=== PATIENT | male | born 1965 | race Caucasian/White ===

== ENCOUNTER 2019-08-13 00:14 | Emergency (ER) | payer OTHER ==
[~2019-08-13] VITALS: Ht 167.6 cm; Wt 90.7 kg
[~2019-08-13 00:14] MED LIST: METFORMIN
[2019-08-13 00:20] VITALS: BP 130/83
--- NOTE | 2019-08-13 00:20 | NUR ---
54 YO M BIB SELF C/C OF 8/10 LEFT CHEST PAIN X2 DAYS THAT RADIATES TO LEFT SHOULDER AND BACK. PT APPEARS DIAPHORETIC. S1 AND S2 HEARD. NO JUGULAR VEIN DISTENTION. CAP REFILL <3 SECS. NO EDEMA. PERIPHERAL PULSES NORMAL. LUNG SOUNDS THROUGHOUT. BOWEL SOUNDS ACTIVE THROUGHOUT. PT PLACED ON LIVESTOCK COMMISSION AGENT. BED LOCKED AND IN LOWEST POSITION. SIDE RAILS X1. NKA MED HX: DM2, HTN RX: LISINOPRIL
[2019-08-13] MEDS ORDERED: NACL 0.9% 1,000 ML IV ONE (00:45)
[2019-08-13] MEDS ORDERED: ASPIRIN 81 MG TAB.CHEW PO ONE ×2 (00:45→01:10)
[2019-08-13] MEDS ORDERED: KETOROLAC 30 MG/ML VIAL IVP ONE (00:45)
[2019-08-13 00:57] LABS: BASOPHILS # (AUTO) 0.1 K/uL (0.00-0.22); BASOPHILS % (AUTO) 0.9 % (0.0-2.0); EOSINOPHILS % (AUTO) 0.3 % (0.0-4.0); HEMATOCRIT 46.7 % (36-52); HEMOGLOBIN 15.9 g/dL (12.0-18.0); LYMPHOCYTES % (AUTO) 15.8 % (20.5-51.1); MEAN CORPUSCULAR HEMOGLOBIN 32 pg (27-31); MEAN CORPUSCULAR HGB CONC 34 g/dL (33-37); MEAN CORPUSCULAR VOLUME 92.3 fL (80-94); MONOCYTES # (AUTO) 1.1 K/uL (0.8-1.0); MONOCYTES % (AUTO) 8.6 % (1.7-9.3); NEUTROPHILS # (AUTO) 9.2 K/uL (1.8-7.7); NEUTROPHILS % (AUTO) 74.4 % (42.2-75.2); PLATELET COUNT (AUTO) 241 K/uL (140-450); RED BLOOD CELL COUNT(AUTO) 5.06 MIL/uL (4.20-6.10); RED CELL DISTRIBUTION WIDTH 12.7 % (11.6-13.7); WHITE BLOOD COUNT (AUTO) 12.4 K/uL (4.8-10.8)
[2019-08-13] MEDS ORDERED: NITROGLYCERIN 0.4 MG TAB SL ONE (01:05)
--- NOTE | 2019-08-13 01:10 | NUR ---
SUBLINGUAL NITROGLYCERIN ADMINISTERED FOR 8/10 CHEST PAIN
[2019-08-13 01:13] LABS: CARBON DIOXIDE 20.3 mmol/L (21-32); POTASSIUM 4.3 mmol/L (3.5-5.1); TOTAL BILIRUBIN 0.6 mg/dL (0.0-1.0)
--- NOTE | 2019-08-13 01:15 | NUR ---
SECOND SUBLINGUAL NITROGLYCERIN ADMINISTERED FIVE MINUTES AFTER FIRST DOSE BECAUSE CHEST PAIN WAS NOT RELIEVED.
[2019-08-13 01:17] LABS: PROTHROMBIN TIME 9.8 secs (10.8-13.4)
--- NOTE | 2019-08-13 01:20 | NUR ---
PT AWARE OF TRANSFER TO [facility]. PT SIGNED CONSENT FOR TRANSFER
--- NOTE | 2019-08-13 01:20 | NUR ---
THIRD SUBLINGUAL NITROGLYCERIN ADMINISTERED FIVE MINUTES AFTER SECOND DOSE BECAUSE CHEST PAIN WAS NOT RELIEVED.
--- NOTE | 2019-08-13 01:25 | NUR ---
PT REPORTED 4/10 CHEST PAIN
--- NOTE | 2019-08-13 01:26 | NUR ---
RAD AT BEDSIDE.
--- NOTE | 2019-08-13 01:40 | NUR ---
PIA GAVE REPORT TO HENRIK DAWSON AT [facility] ER. ACCEPTING DOCTOR IS ANANT, PT WILL GO TO ER VIA [facility] ACLS TRANSFER
--- NOTE | 2019-08-13 01:47 | NUR ---
PETRA FROM LAB CALLED WITH TROPONIN [phone] CHAYITO SANTOS NOTIFIED
[2019-08-13 01:50] VITALS: BP 105/72
--- NOTE | 2019-08-13 01:50 | NUR ---
Patient to be transferred to [facility]. Is being transferred due to HIGHER LEVEL OF CARE. Receiving facility has accepting physician and available space. ER physician has signed transfer form. Patient or responsible libertarian has agreed to transfer and signed form. Patient belongings inventoried and will be sent with patient. Copy of nursing notes, lab reports, EKG, Physicians Orders and X-rays to be sent with patient.
--- NOTE | 2019-08-13 01:53 | NUR ---
[facility] LEFT WITH PT, CODE [address] [facility] WITHOUT INCIDENT
--- NOTE | 2019-08-13 02:12 | NUR ---
SPOKE WITH DR MCCORMACK AT [facility] TO REPORT CRITICAL LAB VALUE OF TROPONIN
== END 2019-08-13 01:50 | disposition short-term general hospital (02) ==
LOC: MED 00:14
DX: I21.3 ST elevation (STEMI) myocardial infarction of unspecified site (principal); E11.9 Type 2 diabetes mellitus without complications; Z79.84 Long term (current) use of oral hypoglycemic drugs
CPT/HCPCS: 36415; 71045; 80053; 84484; 85025; 85610; 85730; 93005; 96374; 99285; J1885; J7030; Q0092

== ENCOUNTER 2021-01-28 14:16 | Emergency (ER) | payer OTHER ==
[~2021-01-28] VITALS: Ht 167.6 cm; Wt 100.2 kg
[2021-01-28 14:48] VITALS: BP 156/81
--- NOTE | 2021-01-28 14:51 | NUR ---
PT TO AWAIT IN LOBBY
--- NOTE | 2021-01-28 14:59 | NUR ---
DR NOLEN EXAMINING PT IN TRIAGE
[2021-01-28] MEDS ORDERED: AMOX-1000 PO (15:12)
[2021-01-28] MEDS ORDERED: IBUP-2213 PO (15:12)
[2021-01-28] MEDS ORDERED: ACET-8386 PO (15:12)
--- NOTE | 2021-01-28 15:26 | NUR ---
Patient discharged with v/s stable. Written and verbal after care instructions given and explained. Patient alert, oriented and verbalized understanding of instructions. Ambulatory with steady gait. All questions addressed prior to discharge. ID band removed. Patient advised to follow up with PMD. Rx of Augmentin, [place] 5-325, Ibuprofen given. Patient educated on indication of medication including possible reaction and side effects. Opportunity to ask questions provided and answered.
--- NOTE | 2021-01-28 15:28 | NUR ---
NO NURSING INTERVENTIONS PERFORMED.
== END 2021-01-28 15:06 | disposition home or self-care (01) ==
LOC: MED 14:16
DX: K08.89 Other specified disorders of teeth and supporting structures (principal); E11.9 Type 2 diabetes mellitus without complications
CPT/HCPCS: 81002; 99283

== ENCOUNTER 2021-09-05 02:30 | Inpatient (IN) | payer OTHER ==
[~2021-09-05] VITALS: Ht 172.7 cm; Wt 101.6 kg
[~2021-09-05 02:30] MED LIST changes: +ACET-8386 PO; +AMOX-1000 PO; +IBUP-2213 PO
[2021-09-05 02:34] VITALS: BP 132/106
--- NOTE | 2021-09-05 02:45 | NUR ---
55 Y/O M CAME TO ED WITH C/C OF CHEST PAIN. PT STATED THAT HE WAS HAVING THE SAME FEELING IN THE CHEST AND BACK HE DID WHEN HE HAD HIS LAST HEART ATTCK [id number] AGO. 8/10 PRESSURE/STABBING PAIN TO UPPER CHEST, THROAT, AND BACK LEFT SHOULDER THAT DOES NOT RADIATE TO ANY OTHER LOCATION. PMH: DM AND HTN NKA
--- NOTE | 2021-09-05 02:53 | NUR ---
PATIENT AMBULATED TO BED 12
[2021-09-05] MEDS ORDERED: ENOXAPARIN 100 MG/ML SYR SUBQ ONE (03:00)
[2021-09-05] MEDS ORDERED: NITROGLYCERIN 2% 1 GM PKT TP ONE (03:00)
[2021-09-05] MEDS ORDERED: ASPIRIN 325 MG TAB PO ONE (03:00)
[2021-09-05] MEDS ORDERED: MORPHINE SULFATE 4 MG/ML SYR IVP ONE (03:00)
[2021-09-05 03:21] LABS: BASOPHILS # (AUTO) 0.1 K/uL (0.00-0.22); EOSINOPHILS # (AUTO) 0.1 K/uL (0-0.4); EOSINOPHILS % (AUTO) 2.4 % (0.0-4.0); HEMOGLOBIN 14.1 g/dL (12.0-18.0); LYMPHOCYTES # (AUTO) 1.7 K/uL (2.0-11.5); LYMPHOCYTES % (AUTO) 27.3 % (20.5-51.1); MEAN CORPUSCULAR HEMOGLOBIN 30 pg (27-31); MEAN CORPUSCULAR HGB CONC 34 g/dL (33-37); MEAN CORPUSCULAR VOLUME 89.5 fL (80-94); MONOCYTES # (AUTO) 0.4 K/uL (0.8-1.0); MONOCYTES % (AUTO) 6.2 % (1.7-9.3); NEUTROPHILS # (AUTO) 3.9 K/uL (1.8-7.7); NEUTROPHILS % (AUTO) 62.1 % (42.2-75.2); PLATELET COUNT (AUTO) 283 K/uL (140-450); RED BLOOD CELL COUNT(AUTO) 4.69 MIL/uL (4.20-6.10); RED CELL DISTRIBUTION WIDTH 13.2 % (11.6-13.7); WHITE BLOOD COUNT (AUTO) 6.2 K/uL (4.8-10.8)
--- NOTE | 2021-09-05 03:47 | NUR ---
ANDREA PADILLA CALLED TO [facility] DR HOANG FOR ADMISSION
[2021-09-05 03:53] LABS: ALBUMIN 3.5 g/dL (3.4-5.0); ANION GAP 12.5 (8-16); CARBON DIOXIDE 24.4 mmol/L (21-32); CREATININE 0.8 mg/dL (0.6-1.3); POTASSIUM 3.9 mmol/L (3.5-5.1); TOTAL BILIRUBIN 0.4 mg/dL (0.0-1.0)
--- NOTE | 2021-09-05 04:34 | NUR ---
CALLED ANDREA PULMONARY BACK TO [facility] AGAIN FOR ADMISSION
--- NOTE | 2021-09-05 05:15 | NUR ---
0500- DR GARCIA CALLED AND TALKED TO DR. RUST TO ACCEPT PT FOR ADMISSION. AWAITING ADMISSION ORDERS
[2021-09-05] MEDS ORDERED: NITROGLYCERIN 0.4 MG TAB SL PRN (05:35)
[2021-09-05] MEDS ORDERED: LORazepam 1 MG TAB PO PRN (05:35)
[2021-09-05] MEDS ORDERED: ZOLPIDEM 5 MG TAB PO PRN (05:35)
[2021-09-05] MEDS ORDERED: ACETAMINOPHEN 325 MG TAB PO PRN (05:35)
[2021-09-05] MEDS ORDERED: PROMETHAZINE 25 MG/ML VIAL IVP PRN (05:35)
[2021-09-05] MEDS ORDERED: INSULIN LISPRO SLIDING SCALE 100 UNITS/ML VIAL SUBQ PRN (05:40)
[2021-09-05] MEDS ORDERED: DEXTROSE 50% 50 ML SYR IVP PRN (05:40)
--- NOTE | 2021-09-05 07:24 | NUR ---
REPORT GIVEN TO [facility] FLUE CLEANER FOR CONTINUITY OF CARE
--- NOTE | 2021-09-05 07:26 | NUR ---
Report received from SAMIR Mills for transfer of care.
[2021-09-05] MEDS: BLOOD GLUCOSE MONITORING 1 DEV DEV FS SCH ×4 (07:46→20:38)
--- NOTE | 2021-09-05 08:18 | NUR ---
Patient is sitting up on bed, vital signs stable. Patient was handed breakfast. Patient is eating food. All needs met.
--- NOTE | 2021-09-05 09:20 | NUR ---
radiology technician at bedside.
--- NOTE | 2021-09-05 11:37 | NUR ---
Note kamini in EDM - 09/05/21 at 1219 by [email or web address] RECEIVED CALL BACK FROM DR PATEL. INFORMED HIM OF THE CRITICAL LAB VALUE, TROPONIN. INFORMED HIM THAT PHYSICAN CONSULTED FOR CARDIO IS NO LONGER WORKING AT THIS HOSPITAL. NO NEW ORDERS RECEIVED.
--- NOTE | 2021-09-05 11:37 | NUR ---
RECEIVED CALL BACK FROM DR PATEL. INFORMED HIM OF THE CRITICAL LAB VALUE, TROPONIN. INFORMED HIM THAT PHYSICAN CONSULTED FOR CARDIO IS NO LONGER WORKING AT THIS HOSPITAL. RECEIVED ORDER FOR EKG FROM CARDIO.
--- NOTE | 2021-09-05 12:00 | NUR ---
Blood sugar is 321. Roman up 8 units of Humalog. Patient refused stating "he takes 25 units at home prior to meals." Patient was notified current sliding scale is 8 units of Humalog at this time per Dr. Byers. Patient refused. Dr. Byers paged.
--- NOTE | 2021-09-05 12:30 | NUR ---
Dr. Byers was notified of patients refusal of 8 units of Humalog according to sliding scale. Patient wants 25 units of insulin prior to meals. Dr. Byers stated to keep current sliding scale and to not give 25 units of insulin. Patient was informed of Dr. Byers order and continued to refuse insulin. Dr. Byers aware of refusal.
[2021-09-05] MEDS: SODIUM CHLORIDE FLUSH 10 ML SYR IVF SCH ×2 (13:00→20:38)
--- NOTE | 2021-09-05 13:03 | NUR ---
PATIENT HAS BEEN SCREENED AND CATEGORIZED MODERATE NUTRITION RISK. PATIENT WILL BE SEEN WITHIN 3-5 DAYS OF ADMISSION. / MAMADOU BLANK RD
--- NOTE | 2021-09-05 14:18 | NUR ---
Dr. Byers at bedside evaluating patient.
--- NOTE | 2021-09-05 14:43 | NUR ---
Patient will be admitted to care of Dr. Byers. Admited to Telemetry. Will go to room 106 B. Belongings list completed. Report to SAMIR Huynh.
--- NOTE | 2021-09-05 15:00 | NUR ---
RECEIVED REPORT FROM ER NURSE. ADMITTED 55 Y/O MALE WITH A CC OF CHEST PAIN. ADMITTING DX CHEST PAIN R/O ACS. HX OF CAD, HTN, DM, HLD, NV, HEART STENT. PT IS AOX4, ABLE TO REED NEEDS KNOWN. NO SOB ON ROOM AIR, SATURATING WELL. NO C/O CHEST PAIN. PT IS AMBULATORY AND CONTINENT. WITH IV ON RAC 20G SALINE LOCKED. SKIN IS INTACT. PENDING CARDIO CONSULT. SAFETY PRECAUTIONS IN PLACE. CALL LIGHT WITHIN REACH.
[2021-09-05 15:28] VITALS: BP 101/57
[2021-09-05] MEDS ORDERED: ATORVASTATIN 80 MG TAB PO SCH (16:15)
[2021-09-05] MEDS ORDERED: LOVENOX 1MG/KG Q12H SUBQ SCH (16:15)
[2021-09-05] MEDS ORDERED: ECOTRIN 81 MG TABEC PO SCH (16:15)
--- NOTE | 2021-09-05 16:30 | NUR ---
PT REFUSING BLOOD SUGAR CHECK AT THIS TIME, WANTS IT TO BE CHECKED AT DINNER TIME
--- NOTE | 2021-09-05 16:47 | NUR ---
DC PLANNING: DR MARTINEZ ORDERED FOR PATIENT TO GO TO CONTRACTED FACILITY FOR CARDIAC CATH. FAXED THE ORDER TO [facility] AND [facility]. CALLED [facility] SPOKE WITH SHANA PROVIDED THE AUTH FOR [facility] [id number] AND FOR TRANSPORT [id number]. CALLED [facility] [place] SPOKE WITH STAN Jenkins IS ACCEPTING PATIENT . CM PROVIDED THE AUTH NUMBER. PATIENT WILL BE TRANSFERRED WHEN BED AVAILABLE. ARRANGED TRANSPORT WITH [facility] PL[facility] IT WILL CALL. CM NOTIFIED HOUSE MICHELLE JAEGER TO FOLLOW UP. CM TO FOLLOW UP
[2021-09-05] MEDS ORDERED: ENOXAPARIN 100 MG/ML SYR SUBQ SCH (17:00)
[2021-09-05] MEDS ORDERED: INSULIN LISPRO 100 UNITS/ML VIAL SUBQ SCH (17:00)
--- NOTE | 2021-09-05 17:00 | NUR ---
SPOKE TO [place] FOR TRANSFER TO [facility] FOR CARDIAC CATH TONIGHT OR TOMORROW. [place] WILL CALL BACK REGARDING ROOM AVAILABILITY. HOUSE SUP TO FOLLOW UP
--- NOTE | 2021-09-05 18:18 | NUR ---
PER PT HE INJECTED HIMSELF WITH HUMALOG 25u WHICH THE BROUGHT FROM HOME. INSTRUCTED PT THAT HE CAN NOT SELF ADMINISTER HIS MEDS IN THE HOSPITAL. PT AND VERBALIZED UNDERSTANDING. BLOOD SUGAR 69, PT REFUSED D50 BECAUSE "HE IS EATING DINNER. IT WILL GO UP". WILL RECHECK BLOOD SUGAR
--- NOTE | 2021-09-05 18:50 | NUR ---
RECHECKED BLOOD SUGAR 141
--- NOTE | 2021-09-05 19:30 | NUR ---
RECEIVED PT FROM AM SHIFT NURSE FOR CONTINUITY OF CARE. PT AWAKE, ALERT AND ORIENTED. ON ROOM AIR, WITH BREATHING EQUAL AND UNLABORED.FAMILY AT BEDSIDE. AT AMBULATORY. DENIES PAIN. ABLE TO MAKE NEEDS KNOWN. PT WILL BE TRANSFERRED TO [facility] FOR CARDIAC CATH. STILL WAITING FOR AVAILABLE BED FOR PATIENT.ALL PRECAUTIONS IN PLACE. WILL CONTINUE TO MONITOR.
[2021-09-05 20:00] VITALS: BP 143/85
--- NOTE | 2021-09-05 20:40 | NUR ---
RECEIVED A CALL FROM [place] TRANSFER [place]. THE INFORMED ME THAT BED IS NOW AVAILABLE FOR PATIENT TRANSFER. PATIENT WILL BE GOING TO TELE STATION 3, ROOM 351A. WILL CALL [facility] TRANSPORT AND GIVE REPORT TO RECEIVING NURSE AT [facility].
[2021-09-05] MEDS ORDERED: METOPROLOL 25 MG TAB PO SCH (21:00)
[2021-09-05] MEDS ORDERED: INSULIN LANTUS 100 UNITS/ML 10 ML VIAL SUBQ SCH (21:00)
--- NOTE | 2021-09-05 21:00 | NUR ---
SPOKE TO [facility] TO ARRANGE TRANSPORT. PATIENT WILL BE PICKED UP AT 2150.
--- NOTE | 2021-09-05 21:00 | NUR ---
REPORT GIVEN TO ALCON ARTHUR AT [facility].
--- NOTE | 2021-09-05 22:15 | NUR ---
PT WAS PICKED UP BY [facility]. REPORT GIVEN TO EMT.PT VITALS ARE STABLE. PT WAS TRANSPORTED VIA GURNEY.PT IN STABLE CONDITION.
== END 2021-09-05 22:15 | disposition short-term general hospital (02) | DRG 190 ==
LOC: MED 02:30 → MTU 05:37
PROVIDERS: ADMIT Hospitalist; ATTEND Hospitalist
DX: I25.119 Atherosclerotic heart disease of native coronary artery with unspecified angina pectoris (principal); I21.A1 Myocardial infarction type 2; E11.9 Type 2 diabetes mellitus without complications; I10 Essential (primary) hypertension; Z20.822 Contact with and (suspected) exposure to COVID-19; E78.5 Hyperlipidemia, unspecified; Z79.899 Other long term (current) drug therapy; Z79.84 Long term (current) use of oral hypoglycemic drugs
CPT/HCPCS: 36415; 71045; 80053; 82948; 83880; 84484; 85025; 85379; 87081; 93005; 96372; 96374; 99291; J1650; J1815; J2270; Q0092

== ENCOUNTER 2022-08-06 14:17 | Emergency (ER) | payer OTHER ==
[~2022-08-06] VITALS: Ht 170.2 cm; Wt 107.5 kg
[~2022-08-06 14:17] MED LIST changes: -ACET-8386 PO; +ACET-8905 PO; -AMOX-1000 PO; -IBUP-2213 PO; -METFORMIN
[2022-08-06 14:36] VITALS: BP 177/88
--- NOTE | 2022-08-06 14:41 | NUR ---
56/M WALKED IN C/O DOUBLE VISION X 5 DAYS. PT REPORTS SEEING EYE DOCTOR AND WAS REFERRED TO VISIT ED. DENIES LOC OR DIZZINESS. DENIES PAIN OR TRAUMA TO EYE. AAO4, AMBULATORY, VITALS STABLE. PMH: DM2, HTN NKA MED: METFORMIN, INSULIN
[2022-08-06 16:07] LABS: BASOPHILS % (AUTO) 0.6 % (0.0-2.0); EOSINOPHILS # (AUTO) 0.1 K/uL (0-0.4); EOSINOPHILS % (AUTO) 1.1 % (0.0-4.0); HEMATOCRIT 38.9 % (36-52); HEMOGLOBIN 13.3 g/dL (12.0-18.0); LYMPHOCYTES # (AUTO) 1.9 K/uL (2.0-11.5); LYMPHOCYTES % (AUTO) 27.6 % (20.5-51.1); MEAN CORPUSCULAR HEMOGLOBIN 31 pg (27-31); MEAN CORPUSCULAR HGB CONC 34 g/dL (33-37); MEAN CORPUSCULAR VOLUME 89.3 fL (80-94); MONOCYTES # (AUTO) 0.6 K/uL (0.8-1.0); MONOCYTES % (AUTO) 9.2 % (1.7-9.3); NEUTROPHILS # (AUTO) 4.3 K/uL (1.8-7.7); NEUTROPHILS % (AUTO) 61.5 % (42.2-75.2); PLATELET COUNT (AUTO) 219 K/uL (140-450); RED BLOOD CELL COUNT(AUTO) 4.35 MIL/uL (4.20-6.10); RED CELL DISTRIBUTION WIDTH 13.7 % (11.6-13.7)
[2022-08-06 16:15] LABS: ANION GAP 12.4 (8-16); CARBON DIOXIDE 24.1 mmol/L (21-32); CREATININE 0.9 mg/dL (0.6-1.3); POTASSIUM 3.5 mmol/L (3.5-5.1)
--- NOTE | 2022-08-06 16:55 | NUR ---
Patient discharged with v/s stable. Written and verbal after care instructions given and explained. Patient verbalized understanding. Ambulatory with steady gait. All questions addressed prior to discharge. Advised to follow up with PMD.
[2022-08-06 16:59] VITALS: BP 135/66
== END 2022-08-06 16:59 | disposition home or self-care (01) ==
LOC: MED 14:17
DX: H53.2 Diplopia (principal); E11.9 Type 2 diabetes mellitus without complications; I10 Essential (primary) hypertension; Z79.4 Long term (current) use of insulin; Z79.899 Other long term (current) drug therapy; Z98.890 Other specified postprocedural states
CPT/HCPCS: 36415; 70450; 70496; 70498; 80048; 85025; 99285; Q9967